=== PATIENT | male | born 1980 | race Hispanic/Latino ===

== ENCOUNTER 2019-08-04 14:51 | Emergency (ER) | payer SELFPAY ==
[2019-08-04] MEDS ORDERED: Morphine 4 MG/ML VIAL ONE (19:28)
[2019-08-04] MEDS ORDERED: Ondansetron ODT 4 MG TAB ONE (19:29)
== END 2019-08-04 19:58 | disposition home or self-care (01) ==
LOC: ERS 14:51
DX: M25.561 Pain in right knee (principal); V89.2XXA Person injured in unspecified motor-vehicle accident, traffic, initial encounter
CPT/HCPCS: 96372; 99283; J2270; Q0162

== ENCOUNTER 2021-01-10 13:20 | Inpatient (IN) | payer SELFPAY ==
[2021-01-10 14:21] LABS: #Basophils 0.1 thou/uL (0.0-0.2); #Eosinphils 0.3 thou/uL (0.0-0.7); #Lymphocytes 2.1 thou/uL (1.20-3.40); #Neutrophils 10.6 thou/uL (1.40-6.50); %Basophils 0.4 % (0.0-1.0); %Eosinophils 1.8 % (0.0-10.0); %Monocytes 7.3 % (0.0-10.0); %Neutrophils 75.6 % (42.0-75.0); Hemoglobin 13.6 g/dL (14.0-18.0); Mean Corpuscular Hemoglobin 36.6 pg (27.0-31.0); Mean Platelet Volume 8.3 fL (7.4-10.4); Platelet Count 199 thou/uL (130-400); RBC Distribution Width 13.3 % (11.5-14.5); Red Blood Cell (RBC) Count 3.72 mill/uL (4.70-6.10)
[2021-01-10] MEDS ORDERED: Multivitamins, Adult 10 ML, Thiamine HCl 100 MG, Folic Acid 1 MG in Dextrose 5 %-0.45 %... IV SCH (14:30)
[2021-01-10 14:38] LABS: Acetaminophen Less than 6.0 mcg/mL (10.0-30.0); Alcohol Less than 10 mg/dL (Less than 10); Salicylate Less than 8.0 mg/dL (15.0-30.0)
[2021-01-10 14:39] LABS: MDiff Complete? YES; Macrocytosis SLIGHT = 6-15 cells (100X) (0-5/hpf); Platelet Morphology Comment Appears Adequate; Polychromasia SLIGHT = 2-3 cells (100X) (0-2/hpf); Target Cells MODERATE= 6-15 cells (100X) (0-1/hpf)
[2021-01-10 14:41] LABS: ALT (SGPT) 82 U/L (8-55); AST (SGOT) 131 U/L (5-34); Albumin 3.1 g/dL (3.5-5.0); Alkaline Phosphatase 272 U/L (40-110); Anion Gap 13 mmol/L (10-20); BUN (Urea Nitrogen) 6 mg/dL (8.9-20.6); Bilirubin, Total 18.4 mg/dL (0.2-1.2); Calc. Creatinine Clearance 0 mL/min (70-130); Calcium 8.9 mg/dL (7.8-10.44); Carbon Dioxide 25 mmol/L (22-29); Chloride 94 mmol/L (98-107); Globulin 3.6 g/dL (2.4-3.5); Glucose 99 mg/dL (70-105); Lipase 21 U/L (8-78); Potassium 3.4 mmol/L (3.5-5.1); Protein, Total 6.7 g/dL (6.0-8.3); Sodium 129 mmol/L (136-145)
[2021-01-10 14:54] LABS: Bilirubin 3+ (Negative); Blood, Urine Negative (Negative); Clarity Clear (Clear); Glucose, Urine (Dipstick) Normal (Negative); Ketone, Urine Negative (Negative); Leukocyte Negative Leu/uL (Negative); Nitrite Negative (Negative); Protein, Urine (Dipstick) Negative (Neg-Trace); Specific Gravity, Urine 1.007 (1.002-1.036); Urobilinogen Normal mg/dL (Less than 2); pH, Urine 6.5 (5.0-9.0)
[2021-01-10 15:08] LABS: Amphetamine Not Detected (NotDetected); Barbiturates Screen Not Detected (NotDetected); Benzodiazepine Screen Not Detected (NotDetected); Cocaine Metabolite Screen Not Detected (NotDetected); Medtox Control Line Valid? VALID (VALID); Medtox Reader # READER 4; Methadone Not Detected (NotDetected); Methamphetamine Not Detected (NotDetected); Opiate Screen Not Detected (NotDetected); Oxycodone Screen Not Detected (NotDetected); Phencyclidine (PCP) Not Detected (NotDetected); THC/Cannabinoid Screen Not Detected (NotDetected); Tricyclic Screen Not Detected (NotDetected)
[2021-01-10 17:12] LABS: INR-International Normal Ratio 0.9; PTT 35.3 sec (22.9-36.1); Prothrombin Time 12.8 sec (12.0-14.7)
[2021-01-10 17:19] LABS: ALT (SGPT) 81 U/L (8-55); AST (SGOT) 129 U/L (5-34); Alkaline Phosphatase 261 U/L (40-110); Bilirubin, Total 17.8 mg/dL (0.2-1.2); Protein, Total 6.6 g/dL (6.0-8.3)
[2021-01-10 17:46] LABS: Bilirubin, Direct 12.6 mg/dL (0.1-0.3)
[2021-01-10 19:32] VITALS: BMI 33.3
[2021-01-10] MEDS: Sodium Chloride 0.9% 1,000 ML IV SCH (21:45)
[2021-01-11 00:24] LABS: SARS-CoV-2 NAA Rapid Test Not Detected (NotDetected)
[2021-01-11 06:10] LABS: ALT (SGPT) 74 U/L (8-55); AST (SGOT) 110 U/L (5-34); Albumin 2.7 g/dL (3.5-5.0); Alkaline Phosphatase 247 U/L (40-110); Anion Gap 11 mmol/L (10-20); BUN (Urea Nitrogen) 4 mg/dL (8.9-20.6); Bilirubin, Total 13.6 mg/dL (0.2-1.2); Calc. Creatinine Clearance 194 mL/min (70-130); Calcium 8.6 mg/dL (7.8-10.44); Carbon Dioxide 25 mmol/L (22-29); Chloride 102 mmol/L (98-107); Globulin 3.3 g/dL (2.4-3.5); Glucose 93 mg/dL (70-105); Potassium 3.8 mmol/L (3.5-5.1); Sodium 134 mmol/L (136-145)
[2021-01-11 06:16] LABS: #Eosinphils 0.4 thou/uL (0.0-0.7); #Lymphocytes 2.6 thou/uL (1.20-3.40); #Monocytes 1.1 thou/uL (0.11-0.59); #Neutrophils 8.3 thou/uL (1.40-6.50); %Basophils 0.4 % (0.0-1.0); %Eosinophils 3.2 % (0.0-10.0); %Lymphocytes 20.8 % (21.0-51.0); %Monocytes 8.6 % (0.0-10.0); Hemoglobin 11.9 g/dL (14.0-18.0); Mean Corpuscular HGB CONC 33.8 g/dL (32.0-36.0); Mean Corpuscular Hemoglobin 35.5 pg (27.0-31.0); Mean Platelet Volume 8.4 fL (7.4-10.4); Platelet Count 216 thou/uL (130-400); RBC Distribution Width 13.3 % (11.5-14.5); Red Blood Cell (RBC) Count 3.36 mill/uL (4.70-6.10); White Blood Cell (WBC) Count 12.3 thou/uL (4.8-10.8)
[2021-01-11] MEDS: Sodium Chloride 0.9% 1,000 ML IV SCH ×2 (06:24→18:41)
[2021-01-11] MEDS: Folic Acid 1 MG TAB PO SCH (09:44)
[2021-01-11] MEDS: Multivitamin W/ Minerals 1 TAB PO SCH (09:44)
[2021-01-11] MEDS: Thiamine 100 MG TAB PO SCH (09:44)
[2021-01-12 06:24] LABS: #Eosinphils 0.5 thou/uL (0.0-0.7); #Lymphocytes 1.9 thou/uL (1.20-3.40); #Neutrophils 8.3 thou/uL (1.40-6.50); %Basophils 0.3 % (0.0-1.0); %Eosinophils 4.2 % (0.0-10.0); %Lymphocytes 16.6 % (21.0-51.0); %Monocytes 8.2 % (0.0-10.0); %Neutrophils 70.7 % (42.0-75.0); Hemoglobin 12.6 g/dL (14.0-18.0); Mean Corpuscular HGB CONC 33.1 g/dL (32.0-36.0); Mean Corpuscular Hemoglobin 34.9 pg (27.0-31.0); Mean Platelet Volume 8.2 fL (7.4-10.4); Platelet Count 247 thou/uL (130-400); RBC Distribution Width 13.9 % (11.5-14.5); White Blood Cell (WBC) Count 11.7 thou/uL (4.8-10.8)
[2021-01-12 06:35] LABS: ALT (SGPT) 76 U/L (8-55); AST (SGOT) 113 U/L (5-34); Alkaline Phosphatase 262 U/L (40-110); Anion Gap 13 mmol/L (10-20); BUN (Urea Nitrogen) 4 mg/dL (8.9-20.6); Bilirubin, Total 12.8 mg/dL (0.2-1.2); Calc. Creatinine Clearance 219 mL/min (70-130); Calcium 8.9 mg/dL (7.8-10.44); Carbon Dioxide 23 mmol/L (22-29); Chloride 99 mmol/L (98-107); Globulin 3.7 g/dL (2.4-3.5); Glucose 94 mg/dL (70-105); Iron Binding Capacity, Total 190 mcg/dL (261-462); Phosphorus 3.5 mg/dL (2.3-4.7); Potassium 3.8 mmol/L (3.5-5.1); Protein, Total 6.7 g/dL (6.0-8.3); Sodium 131 mmol/L (136-145)
[2021-01-12 06:52] LABS: Ferritin 1675.47 ng/mL (22-322)
[2021-01-12 07:05] LABS: HBCM Index 0.05 S/CO (0-0.79); HBSAg Index 0.21 S/CO (0-0.99); Hep A IgM AB Non-Reactive (NonReactive); Hep B Surf Ag Non-Reactive S/CO (NonReactive); Hep C IgG Ab Non-Reactive (NonReactive); Hep C Index 0.05 S/CO (0-0.79); Hepatitis B Core IgM Abs Non-Reactive (NonReactive)
[2021-01-12] MEDS: Folic Acid 1 MG TAB PO SCH (09:07)
[2021-01-12] MEDS: Multivitamin W/ Minerals 1 TAB PO SCH (09:07)
[2021-01-12] MEDS: Thiamine 100 MG TAB PO SCH (09:07)
[2021-01-12] MEDS: Sodium Chloride 0.9% 1,000 ML IV SCH (09:08)
[2021-01-12 11:21] VITALS: BP 105/67; TEMP 99.2
[2021-01-12] MEDS ORDERED: Ondansetron ODT 4 MG TAB PO PRN (11:21)
[2021-01-12] MEDS ORDERED: Senokot S 8.6-50 MG TAB PO PRN (11:21)
[2021-01-12] MEDS ORDERED: Ondansetron PF 4 MG/2 ML Vial IVP PRN (11:21)
[2021-01-13 16:07] LABS: ANA Symphony (Qualitative) Negative (Negative); ANA Symphony (Quantitative) 0.1 Ratio (< 0.7 Negative); EliA Vaculitis New Method **** NEW METHOD ****; Mitochondrial Ab 1.4 U/mL (<4 Negative); dsDNA IgG Antibody Less than 0.5 IU/mL (<10 Negative)
== END 2021-01-12 16:36 | disposition home or self-care (01) | DRG 433 ==
LOC: ERS 13:20 → T4-A 17:07
PROVIDERS: ADMIT Internal Medicine; ATTEND Internal Medicine
DX: K70.10 Alcoholic hepatitis without ascites (principal); E87.1 Hypo-osmolality and hyponatremia; Z20.822 Contact with and (suspected) exposure to COVID-19; F10.20 Alcohol dependence, uncomplicated; E87.6 Hypokalemia; E66.9 Obesity, unspecified; K76.9 Liver disease, unspecified; E88.09 Other disorders of plasma-protein metabolism, not elsewhere classified; F17.210 Nicotine dependence, cigarettes, uncomplicated; K76.0 Fatty (change of) liver, not elsewhere classified; Z68.33 Body mass index [BMI] 33.0-33.9, adult; Z71.41 Alcohol abuse counseling and surveillance of alcoholic; Z71.6 Tobacco abuse counseling; Z79.899 Other long term (current) drug therapy
CPT/HCPCS: 36415; 80053; 80074; 80306; 80307; 81003; 82105; 82140; 82728; 83516; 83550; 83690; 83735; 84100; 85025; 85610; 85730; 86038; 86225; 87040; 87086; 93005; 93975; 96365; 96366; J3411; J7042; U0002; U0005

== ENCOUNTER 2025-05-25 11:06 | Emergency (ER) | payer OTHER ==
[2025-05-25] MEDS ORDERED: HYDROcodone/Acetaminophen 5/325 mg Tablet ONE (12:10)
== END 2025-05-25 12:34 | disposition home or self-care (01) ==
LOC: ERS 11:06
DX: S92.412A Displaced fracture of proximal phalanx of left great toe, initial encounter for closed fracture (principal); F17.210 Nicotine dependence, cigarettes, uncomplicated; X58.XXXA Exposure to other specified factors, initial encounter
CPT/HCPCS: 99283